=== PATIENT | female | born 1955 | race Caucasian/White ===

== ENCOUNTER 2019-12-22 00:28 | Inpatient (IN) | payer SELFPAY ==
[~2019-12-22] VITALS: Ht 165.1 cm; Wt 54.0 kg
[2019-12-22 00:35] VITALS: BP_SYST 125
--- NOTE | 2019-12-22 00:35 | NUR ---
Patient to ER bed 2 to gown for evaluation. Side rails up.
--- NOTE | 2019-12-22 00:36 | NUR ---
ER at bedside examining patient.
[2019-12-22] MEDS ORDERED: GLUCAGON,HUMAN RECOMBINANT 1 MG VIAL IVP ONE ×2 (00:45→03:15)
[2019-12-22] MEDS ORDERED: METOCLOPRAMIDE HCL 10 MG/2 ML VIAL IVP ONE ×2 (00:45→03:15)
--- NOTE | 2019-12-22 00:56 | NUR ---
# 20 gauge angiocath placed to LEFT HAND. Use of asceptic technique. Opsite placed over site. Blood return noted. Blood for lab drawn from site. Flushed with 10 cc of normal saline. No evidence of infiltration noted. Patient tolerated well.
--- NOTE | 2019-12-22 01:15 | NUR ---
Report given to nurse Yessi OLVERA
--- NOTE | 2019-12-22 01:20 | NUR ---
Pt presents to ER with c/o foreign object in throat. Pt A&Ox4. Per daughter, family was eating chicken at around 1030 pm and pt c/o food stuck in throat. Per daughter, pt states nausea and abdominal pain. Pt states pain 2/10. Pt describes pain as a burning sensation. No SOB noted. Breath sounds bilaterally clear with no use of accessory muscles. Will endorse all care.
--- NOTE | 2019-12-22 02:16 | NUR ---
Pt walked with stable gait to restroom.
--- NOTE | 2019-12-22 03:00 | NUR ---
Medication reconciliation completed with information provided by patient daughter. Any prior medication reconciliation on file was reviewed and corrected.
[2019-12-22] MEDS ORDERED: FAMO20TA8 PO (03:02)
[2019-12-22] MEDS ORDERED: ONDA4TAB5 SL (03:02)
[2019-12-22] MEDS ORDERED: TEMO5CAP PO (03:02)
[2019-12-22] MEDS ORDERED: DEC4 PO (03:02)
[2019-12-22] MEDS ORDERED: PARO-41 PO (03:02)
--- NOTE | 2019-12-22 03:09 | NUR ---
MD Hubbard at bedside speaking with daughter and pt about admission.
--- NOTE | 2019-12-22 03:30 | NUR ---
Per MD Hubbard, pt does not want to be admitted due to no insurance.
--- NOTE | 2019-12-22 03:45 | NUR ---
Pt medicated per MD orders. Pt tolerated well. Will continue to monitor.
--- NOTE | 2019-12-22 03:47 | NUR ---
Pt daughter wants to be updated for pt care. Daughter is Cyndi and phone number: .
[2019-12-22] MEDS ORDERED: D5/0.45 NS 1,000 ML IV SCH (03:53)
--- NOTE | 2019-12-22 03:59 | NUR ---
Patient will be admitted to care of [facility]. Admitted to MEDICAL/SURGICAL unit. Awaiting bed placement. Belongings list completed. Complete and up to date summary report printed. SBAR report to be given at bedside with opportunity for questions.
[2019-12-22] MEDS ORDERED: MORPHINE 2 MG/ML INJ. SYRINGE IVP PRN (04:00)
[2019-12-22] MEDS ORDERED: MORPHINE 4 MG/ML INJ. SYRINGE IVP PRN (04:00)
--- NOTE | 2019-12-22 04:17 | NUR ---
Spoke with Cyndi over telephone and verbalized belongings. Pt daughter verbalized she agreed.
--- NOTE | 2019-12-22 04:20 | NUR ---
Transfer to [facility] room 103B. IV present no sign or symptom of infiltration.
--- NOTE | 2019-12-22 04:39 | NUR ---
ADMIT NOTE Received pt from ER to the floor with a diagnosis of dysphagia. Admission process initiated. patient oriented to pain management, safety and call light-teach back done, daughter at bedside..
[2019-12-22 04:50] VITALS: BP_SYST 103
--- NOTE | 2019-12-22 05:11 | NUR ---
Consultation Paged Reason for Consultation: Dysphagia Was consult called: Y Person who was notified: Clementine Consulting Physician: Ravi Brito (Dr. Jarrett is consulting solution director) Education Research Analyst Ordering Physician: Jacob Pedraza
--- NOTE | 2019-12-22 07:00 | NUR ---
DR. Watts s/w Dr. Watts and informed patient doesn't want Morphine pain medication. She wants Decadron IV, she takes Decadron 4mg tablet. He provided an order for toradol 30mg IVP Q6P mod pain., Read back and entered in [employer].
[2019-12-22] MEDS ORDERED: KETOROLAC TROMETHAMINE 30 MG VIAL IVP PRN (07:15)
[2019-12-22 08:00] VITALS: BP_SYST 87
--- NOTE | 2019-12-22 09:00 | NUR ---
rounds transfer of care, rec patient asleep but arousable to stimuli. daughter at bedside. ivf infusing well on the l hand. no infiltration noted. resp easy and unlabored. bed to the lowest position and side rails up and locked. call light within reached and knows when to call for assistance.
[2019-12-22] MEDS ORDERED: methylPREDNISolone SOD SUCC 40 MG/ML VIAL IVP ONE (09:45)
[2019-12-22] MEDS ORDERED: ONDANSETRON HCL 4 MG/2 ML VIAL IVP PRN (09:45)
[2019-12-22] MEDS ORDERED: LORazepam 2 MG/ML VIAL IVP PRN (09:45)
[2019-12-22] MEDS ORDERED: FAMOTIDINE PF 20 MG/2 ML VIAL IVP SCH (09:45)
[2019-12-22] MEDS ORDERED: DEXAMETHASONE SOD PHOSPHATE 4 MG/ML VIAL IVP ONE (10:15)
--- NOTE | 2019-12-22 12:05 | NUR ---
SS NOTES: E[employer]MENT[employer] READING TEACHER was referred by CM to see patient for Self-pay and DCPA. Demographic information verified (address: [address]) ELEMENT[employer] SCHO[employer] READING TEACHER was asleep during the encounter. ELEMENT[employer] SCHO[employer] READING TEACHER spoke with dtr, Chanell instead. Pt is a 64 y/o female visiting from [facility]. [place] now. Per dtr, pt was diagnosed with brain tumor at [facility] 3 months ago. Pt is mostly independent with ADL's and needs assistance on ambulating since diagnosed with brain tumor. Pt does not own any DME. Pt's daughter expressed frustrations that the patient has not been seen by a GI doctor, ELEMENT[employer] SCHO[employer] READING TEACHER informed daughter that a consult is in place. Per dtr, they are not looking into getting an insurance for pt, pt is visiting form [facility] and does not have a social security number. Daughter appeared to be guarded on providing more information and requested to be seen some other time. ELE[employer] S[employer] READING TEACHER offered to provide resources which the daughter declined. SS will remain available for resources and follow up as needed.
[2019-12-22 13:31] VITALS: BP_SYST 88
[2019-12-22] MEDS ORDERED: DEXAMETHASONE SOD PHOSPHATE 4 MG/ML VIAL IVP SCH (21:00)
[2019-12-23] MEDS ORDERED: methylPREDNISolone SOD SUCC 40 MG/ML VIAL IVP SCH (09:00)
== END 2019-12-22 14:15 | disposition left against medical advice (07) | DRG 156 ==
LOC: SED 00:28 → SMU 03:53
PROVIDERS: ADMIT Preventive Medicine Preventive Medicine/Occupational Environmental Medicine; ATTEND Preventive Medicine Preventive Medicine/Occupational Environmental Medicine
DX: T17.228A Food in pharynx causing other injury, initial encounter (principal); R13.10 Dysphagia, unspecified; Z53.29 Procedure and treatment not carried out because of patient's decision for other reasons; X58.XXXA Exposure to other specified factors, initial encounter; Z85.841 Personal history of malignant neoplasm of brain; Y93.89 Activity, other specified; Y92.89 Other specified places as the place of occurrence of the external cause; Z79.899 Other long term (current) drug therapy; Y99.8 Other external cause status
CPT/HCPCS: 70490; 96374; 96375; 96376; 99291; J1100; J1610; J1885; J2765; J3490